=== PATIENT | male | born 1995 | race Caucasian/White ===

== ENCOUNTER 2024-01-12 | Emergency (ER) | payer BC ==
[2024-01-12 00:18] VITALS: RESP 24; TEMP 96.2
[2024-01-12] MEDS ORDERED: PROTONIX 40 MG IV IV ONE (00:31)
[2024-01-12] MEDS ORDERED: Zofran 4 MG/2 ML VIAL ONE (00:31)
[2024-01-12] MEDS ORDERED: Sodium Chloride 0.9% 1000 ML 1,000 ML ONE (00:31)
[2024-01-12 00:38] LABS: Absolute Neutrophil Ct (ANC) 9.91 x10^3/uL (1.78-5.38); BASOPHIL % 0.5 % (0.2-1.2); Basophil (Absolute #) 0.07 x10^3/uL (0.01-0.08); Eosinophil % 0.5 % (0.8-7.0); Eosinophil (Absolute #) 0.06 x10^3/uL (0.04-0.54); Hematocrit 41.3 % (40.1-51.0); Hemoglobin 14.2 g/dL (13.7-17.5); IMMATURE GRAN # 0.03 x10^3u/L (0.001-0.031); IMMATURE GRAN % 0.2 % (0.001-0.429); Lymphocyte (Absolute #) 2.04 x10^3/uL (1.32-3.57); Lymphocytes % 15.6 % (21.8-53.1); Mean Cell Volume 83.4 fL (79.0-92.2); Mean Corpuscular Hemoglobin 28.7 pg (25.7-32.2); Mean Corpuscular Hgb Concent. 34.4 g/dL (32.3-36.5); Mean Platelet Volume 9.1 fL (9.4-12.4); Monocyte (Absolute #) 0.99 x10^3/uL (0.30-0.82); Monocytes % 7.6 % (5.3-12.2); Neutrophil % 75.6 % (34.0-67.9); Platelet Count 452 x10^3/uL (163-337); Red Blood Count 4.95 x10^6/uL (4.63-6.08); Red Cell Distribution Width 13.4 % (11.6-14.4); White Blood Count 13.1 x10^3/uL (4.23-9.07)
[2024-01-12] MEDS ORDERED: OFIRMEV 100 ML IV ONE (00:47)
[2024-01-12] MEDS ORDERED: BENADRYL 50 MG/ML ONE (00:49)
[2024-01-12] MEDS ORDERED: Reglan 10 MG/2 ML ONE (00:50)
[2024-01-12 00:51] LABS: ALBUMIN 4.4 g/dL (3.5-5.0); ANION GAP 16.7 MEQ/L (5-15); BILIRUBIN,TOTAL 0.9 mg/dL (0.2-1.3); Calcium 9.6 mg/dL (8.4-10.2); Creatinine 1 1.09 mg/dL (0.66-1.25); EST GLOMERULAR FILTRATION RATE 94.2 ML/MIN; Potassium 3.4 mmol/L (3.5-5.1); Total Protein 7.4 g/dL (6.3-8.2)
[2024-01-12] MEDS: PROTONIX 40 MG IV IV ONE (00:55)
[2024-01-12] MEDS: Zofran 4 MG/2 ML VIAL IV ONE (00:55)
[2024-01-12] MEDS: Sodium Chloride 0.9% 1000 ML 1,000 ML IV STA (00:55)
[2024-01-12] MEDS: Reglan 10 MG/2 ML IV ONE (00:57)
[2024-01-12] MEDS: BENADRYL 50 MG/ML IV ONE (01:01)
[2024-01-12] MEDS: OFIRMEV 1,000 MG/100 ML ML IV ONE (01:02)
--- NOTE | 2024-01-12 01:16 | ERPHSYRPT ---
- History of Present Illness Time Seen by Provider: 01/12/24 00:09 Historian: patient, family Exam Limitations: no limitations Patient Subjective Stated Complaint: pt states that he was at yesterday and was diagnosed with a stomach virus. pt states that he was able to keep food down all day and 30 minutes prior to coming in he vomited Triage Nursing Assessment: pt ambulated into the er; pt is axo x4; c/o vomiting; pt states 8/10 to epigastric region; abd obese, round, tender; active bowel sounds in all quads; c/o N/V, denies diarrhea; mucus membranes pink and moist; skin PDW; no respiratory distress present; Physician History: 28-year-old male presented to the ER with complaint of nausea vomiting with upper abdominal pain. Patient apparently had food at a restaurant 3 days ago and started to feel some upset stomach followed by multiple episodes of nonprojectile, nonbilious vomiting and was evaluated at [facility] ER with a negative workup including CT abdomen pelvis. He was given Zofran to go home. Patient tolerated food well until 30 minutes ago and started to have some pain again with associated multiple episodes of nonprojectile, nonbilious vomiting and dry heaving. Patient reports cramping in the whole abdomen especially in the upper. No diarrhea. No fever or chills reported. Allergies/Adverse Reactions: No Known Drug Allergies Allergy (Unverified 01/12/24 00:07) Home Medications: No Reportable Medications [No Reported Medications] 01/12/24 [History] Hx Tetanus, Diphtheria Vaccination/Date Given: No Hx Influenza Vaccination/Date Given: No Hx Pneumococcal Vaccination/Date Given: No Travel Risk - International Travel Have you traveled outside of the country in past 3 weeks: No - Emerging Infectious Disease Are you exhibiting symptoms associated with any current EIDs: Yes Symptoms: Abdominal Pain, Diarrhea, Vomitting - Review of Systems Constitutional: Fatigue, Weakness Eyes: No Symptoms Ears, Nose, & Throat: No Symptoms Respiratory: No Symptoms Cardiac: No Symptoms Abdominal/Gastrointestinal: Abdominal Pain, Nausea, Vomiting Genitourinary Symptoms: No Symptoms Musculoskeletal: Myalgias Skin: No Symptoms Neurological: No Symptoms Psychological: No Symptoms Endocrine: No Symptoms Hematologic/Lymphatic: No Symptoms Immunological/Allergic: No Symptoms - Past Medical History Pertinent Past Medical History: No - Past Surgical History Past Surgical History: No - Social History Smoking Status: Never smoker Exposure to second hand smoke: No Drug Use: marijuana - Social Determinants of Health Will the patient participate in the screening: Yes Do you worry about a steady place to live?: No Do you have any problems with any of the following?: No known problems In the past 12 months,have you had to go without utilities?: No Transportation Issues: No Has anyone in your support network made you feel unsafe?: No Have you or anyone in your house had to go without enough: No - Nursing Vital Signs Nursing Vital Signs: Initial Vital Signs Temperature 96.2 F 01/12/24 00:08 Pulse Rate 53 L 01/12/24 00:08 Respiratory Rate 24 01/12/24 00:08 Blood Pressure 140/88 01/12/24 00:08 O2 Sat by Pulse Oximetry 97 01/12/24 00:08 Pain Scale Pain Intensity 8 - Physical Exam General Appearance: no apparent distress, alert Eye Exam: PERRL/EOMI Ears, Nose, Throat Exam: normal ENT inspection Neck Exam: normal inspection, full range of motion Respiratory Exam: normal breath sounds, lungs clear Cardiovascular Exam: normal heart sounds, bradycardia Gastrointestinal/Abdomen Exam: soft, normal bowel sounds, tenderness (Mild tenderness to deep palpation in the epigastric area), No distention, No guarding Back Exam: normal inspection, normal range of motion Neurologic Exam: alert, oriented x 3, cooperative, powerhouse helper II-XII nml as tested Skin Exam: normal color SpO2 Interpretation: normal SpO2: 98 O2 Delivery: Room Air Ordered Tests: Active Orders 24 hr Category Date Time Status IV Insertion STAT Care 01/12/24 00:22 Active NPO (ED) STAT Care 01/12/24 00:22 Active ABDOMEN AND PELVIS W/0 CONTRAS [CT] Stat Exams 01/12/24 00:23 Ordered CBC W DIFF Stat Lab 01/12/24 00:35 Completed CMP Stat Lab 01/12/24 00:35 Completed LIPASE Stat Lab 01/12/24 00:35 Completed Lactic Acid Stat Lab 01/12/24 00:33 Completed UA W/RFX UR CULTURE Stat Lab 01/12/24 00:22 Ordered Medication Summary Generic Name Dose Route Start Last Admin Trade Name Freq PRN Reason Stop Dose Admin Sodium Chloride 1,000 mls @ 999 mls/hr 01/12/24 00:22 Sodium Chloride 0.9% 1000 Ml IV 01/12/24 01:22 .Q1H1M STA Discontinued Medications Generic Name Dose Route Start Last Admin Trade Name Susan PRN Reason Stop Dose Admin Diphenhydramine HCl 25 mg 01/12/24 00:48 Diphenhydramine Hcl 50 Mg/Ml Vial IV 01/12/24 00:49 STAT ONE Diphenhydramine HCl Confirm 01/12/24 00:49 Diphenhydramine Hcl 50 Mg/Ml Vial Administered 01/12/24 00:50 Dose 50 mg .ROUTE .STK-MED ONE Sodium Chloride Confirm 01/12/24 00:31 Sodium Chloride 0.9% 1000 Ml Administered 01/12/24 00:32 Dose 1,000 mls @ ud .ROUTE .STK-MED ONE Acetaminophen 1,000 mg in 100 mls @ 400 mls/hr 01/12/24 00:36 Ofirmev IV 01/12/24 00:50 1HRPRIOR ONE Acetaminophen Confirm 01/12/24 00:47 Ofirmev Administered 01/12/24 00:48 Dose 100 mls @ ud IV .STK-MED ONE Metoclopramide HCl 10 mg 01/12/24 00:48 Metoclopramide Hcl 10 Mg/2 Ml Vial IV 01/12/24 00:49 STAT ONE Metoclopramide HCl Confirm 01/12/24 00:50 Metoclopramide Hcl 10 Mg/2 Ml Vial Administered 01/12/24 00:51 Dose 10 mg .ROUTE .STK-MED ONE Ondansetron HCl 4 mg 01/12/24 00:22 Ondansetron Hcl 4 Mg/2 Ml Vial IV 01/12/24 00:23 STAT ONE Ondansetron HCl Confirm 01/12/24 00:31 Ondansetron Hcl 4 Mg/2 Ml Vial Administered 01/12/24 00:32 Dose 4 mg .ROUTE .STK-MED ONE Pantoprazole Sodium 40 mg 01/12/24 00:22 Pantoprazole 40 Mg Vial IV 01/12/24 00:23 STAT ONE Pantoprazole Sodium Confirm 01/12/24 00:31 Pantoprazole 40 Mg Vial Administered 01/12/24 00:32 Dose 40 mg IV .STK-MED ONE Lab/Rad Data: Laboratory Result Diagrams 01/12/24 00:35 01/12/24 00:35 Laboratory Results 01/12/24 01/12/24 01/12/24 Range/Units 00:35 00:35 00:33 WBC 13.1 H (4.23-9.07) x10^3/uL RBC 4.95 (4.63-6.08) x10^6/uL Hgb 14.2 (13.7-17.5) g/dL Hct 41.3 (40.1-51.0) % MCV 83.4 (79.0-92.2) fL MCH 28.7 (25.7-32.2) pg MCHC 34.4 (32.3-36.5) g/dL RDW 13.4 (11.6-14.4) % Plt Count 452 H (163-337) x10^3/uL MPV 9.1 L (9.4-12.4) fL Gran % 75.6 H (34.0-67.9) % Immature Gran % (Auto) 0.2 (0.001-0.429) % Nucleat RBC Rel Count 0.0 (0.00-0.2) % Eos # (Auto) 0.06 (0.04-0.54) x10^3/uL Immature Gran # (Auto) 0.03 (0.001-0.031) x10^3u/L Absolute Lymphs (auto) 2.04 (1.32-3.57) x10^3/uL Absolute Monos (auto) 0.99 H (0.30-0.82) x10^3/uL Absolute Nucleated RBC 0.00 (0.00-0.012) x10^3u/L Lymphocytes % 15.6 L (21.8-53.1) % Monocytes % 7.6 (5.3-12.2) % Eosinophils % 0.5 L (0.8-7.0) % Basophils % 0.5 (0.2-1.2) % Absolute Granulocytes 9.91 H (1.78-5.38) x10^3/uL Basophils # 0.07 (0.01-0.08) x10^3/uL Sodium 139 (135-145) mmol/L Potassium 3.4 L (3.5-5.1) mmol/L Chloride 105 (98-107) mmol/L Carbon Dioxide 21 L (22-30) mmol/L Anion Gap 16.7 H (5-15) MEQ/L BUN 16 (9-20) mg/dL Creatinine 1.09 (0.66-1.25) mg/dL Estimated GFR 94.2 ML/MIN Glucose 122 H (74-106) mg/dL Lactic Acid 1.8 (0.4-2.0) Calcium 9.6 (8.4-10.2) mg/dL Total Bilirubin 0.90 (0.2-1.3) mg/dL AST 51 (17-59) U/L ALT 54 H (0-50) U/L Alkaline Phosphatase 53 (38-126) U/L Serum Total Protein 7.4 (6.3-8.2) g/dL Albumin 4.4 (3.5-5.0) g/dL Lipase 60 (23-300) U/L - Progress Progress: improved Progress Note: 01/12/24 01:57 28-year-old is evaluated for upper abdominal pain with nausea vomiting for the last few days after eating outside at a restaurant. Patient was thoroughly evaluated yesterday at [facility] ER with a negative CT. Patient was given Zofran along with Protonix. He tolerated food until earlier today and started vomiting again. Patient has no peritoneal signs. Some tenderness in the epigastric area. Bowel sounds positive. Workup showed white count of 13, chemistries with some element of dehydration, given fluids along with Zofran but still vomiting. I have given him Reglan and Benadryl, on reevaluation he is feeling much better. Still have some cramping and given IV Tylenol. I have ordered CT abdomen pelvis which patient declined. On reevaluation he is feeling much better. Discussed signs symptoms of worsening needing return to ER which she seems understanding. 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 Counseled pt/family regarding: lab results, diagnosis, need for follow-up Medical Desision Making - Independent Historian Additional History obtained from: Spouse - Diagnostic Testing Diagnostic test were ordered, analyzed, and reviewed by me: Yes - Risk of complications The pt has a mod risk of morbidity or mortality based on: Need for prescription drug management - Departure Clinical Impression: Acute gastroenteritis Condition: Stable Critical Care Time: No Instructions: Viral Gastroenteritis, Child ED Additional Instructions: Drink plenty of fluids. Take Tylenol/Zofran as needed. Follow-up with primary care for reevaluation. Take soft diet and slowly introduce regular food. Return to ER for intractable vomiting/abdominal pain/fever chills etc.
[2024-01-12] MEDS ORDERED: Reglan 10 MG ONE (01:19)
[2024-01-12] MEDS: Reglan 10 MG PO ONE (01:20)
[2024-01-12 01:57] VITALS: BP 138/89; PULSE 49; O2SAT 95
== END 2024-01-12 01:57 | disposition home or self-care (01) ==
LOC: ED
DX: K52.9 Noninfective gastroenteritis and colitis, unspecified (principal); R11.2 Nausea with vomiting, unspecified; R10.10 Upper abdominal pain, unspecified
CPT/HCPCS: 36000; 36415; 80053; 83605; 83690; 85025; 96360; 96365; 96374; 96375; 99284; J1200; J2405; A9270-GY